=== PATIENT | female | born 1950 | race Caucasian/White ===

== ENCOUNTER 2016-07-16 07:31 | Outpatient (CLI) | payer OTHER ==
[2016-07-16 08:00] LABS: Bilirubin Negative (Negative); Blood, Urine Small (Negative); Glucose, Urine (Dipstick) Negative (Negative); Ketone, Urine Negative (Negative); Nitrite Negative (Negative); Protein, Urine (Dipstick) Negative (Neg-Trace); Urobilinogen 0.2 mg/dL (0.2-1.0)
[2016-07-16 08:25] LABS: Bacteria/HPF Rare-Few HPF (None Seen); RBC/HPF 0-3 HPF (0-3); Squamous Epithelial 0-3 HPF (0-3); WBC/HPF None Seen HPF (0-3)
[2016-07-16 08:36] LABS: ALT (SGPT) 16 U/L (0-55); AST (SGOT) 18 U/L (5-34); Alkaline Phosphatase 41 U/L (40-150); Anion Gap 12 mmol/L (10-20); BUN (Urea Nitrogen) 18 mg/dL (9.8-20.1); Bilirubin, Total 0.4 mg/dL (0.2-1.2); Calc. Creatinine Clearance 0 mL/min (70-130); Calcium 9.2 mg/dL (7.8-10.44); Carbon Dioxide 25 mmol/L (23-31); Chloride 106 mmol/L (98-107); Estimated GFR-MDRD 77; Globulin 2.2 g/dL (2.4-3.5); LDL Cholesterol, Calculated 88 mg/dL; Protein, Total 6.5 g/dL (5.8-8.1)
[2016-07-16 09:07] LABS: Hematocrit 41.5 % (36.0-47.0); Mean Platelet Volume 9.3 fL (7.4-10.4); White Blood Cell (WBC) Count 3.9 thou/uL (4.8-10.8)
[2016-07-16 09:08] LABS: Neutrophil 37 % (42-75); Reactive Lymphocytes 1 % (0-10)
== END 2016-07-16 07:32 | disposition home or self-care (01) ==
LOC: NAV LAB 07:31
PROVIDERS: ATTEND Family Medicine
DX: I10 Essential (primary) hypertension (principal); E78.2 Mixed hyperlipidemia; R31.21 Asymptomatic microscopic hematuria
CPT/HCPCS: 36415; 80050; 80061; 81001

== ENCOUNTER 2016-09-14 08:28 | Outpatient (CLI) | payer OTHER ==
[2016-09-14 08:41] LABS: Band 4 % (5-11); Eosinophils 2 % (0-10); Hemoglobin 14.1 g/dL (12.0-16.0); Lymphocytes 60 % (21-51); MDiff Complete? YES; Mean Corpuscular HGB CONC 32.3 g/dL (32.0-36.0); Mean Corpuscular Hemoglobin 31.7 pg (27.0-31.0); Mean Platelet Volume 9.5 fL (7.4-10.4); Monocytes 4 % (0-10); Neutrophil 28 % (42-75); PLT Morphology Comment Appears Adequate; Platelet Count 244 thou/uL (130-400); RBC Distribution Width 11.5 % (11.5-14.5); RBC Morphology Normal; Red Blood Cell (RBC) Count 4.46 mill/uL (4.20-5.40); White Blood Cell (WBC) Count 4.4 thou/uL (4.8-10.8)
== END 2016-09-14 08:29 | disposition home or self-care (01) ==
LOC: NAV LAB 08:28
PROVIDERS: ATTEND Family Medicine
DX: D70.9 Neutropenia, unspecified (principal)
CPT/HCPCS: 36415; 85025

== ENCOUNTER 2017-01-01 18:17 | Outpatient (CLI) | payer OTHER ==
[2017-01-01 21:44] LABS: #Basophils 0.1 thou/uL (0.0-0.2); #Eosinphils 0.1 thou/uL (0.0-0.7); #Lymphocytes 30.8 thou/uL (1.20-3.40); #Monocytes 0.4 thou/uL (0.11-0.59); #Neutrophils 1.6 thou/uL (1.40-6.50); %Basophils 1.7 % (0.0-1.0); %Eosinophils 1.5 % (0.0-10.0); %Lymphocytes 58.6 % (21.0-51.0); %Monocytes 7.8 % (0.0-10.0); %Neutrophils 30.3 % (42.0-75.0); Hemoglobin 12.2 g/dL (12.0-16.0); Mean Corpuscular HGB CONC 32.6 g/dL (32.0-36.0); Mean Corpuscular Hemoglobin 30.6 pg (27.0-31.0); Mean Corpuscular Volume 93.8 fl (81.0-99.0); Mean Platelet Volume 9.7 fL (7.4-10.4); Platelet Count 220 thou/uL (130-400); RBC Distribution Width 11.4 % (11.5-14.5); White Blood Cell (WBC) Count 5.3 thou/uL (4.8-10.8)
== END 2017-01-01 18:18 | disposition home or self-care (01) ==
LOC: NAV LAB 18:17
PROVIDERS: ATTEND Family Medicine
DX: D70.8 Other neutropenia (principal)
CPT/HCPCS: 85025